=== PATIENT | female | born 1955 | race Caucasian/White ===

== ENCOUNTER 2022-09-21 08:48 | Outpatient (CLI) | payer OTHER | END 2022-09-21 08:50 | disposition home or self-care (01) | LOC: RX STUDY 08:48 | DX: R10.13 Epigastric pain (principal); K21.9 Gastro-esophageal reflux disease without esophagitis ==

== ENCOUNTER 2024-09-25 11:42 | Outpatient (CLI) | payer OTHER | END 2024-09-25 11:51 | disposition home or self-care (01) | LOC: RAD 11:42 | PROVIDERS: ATTEND Orthopaedic Surgery | DX: R05.9 Cough, unspecified (principal); M16.11 Unilateral primary osteoarthritis, right hip ==

== ENCOUNTER 2025-02-19 11:15 | Inpatient (IN) | payer OTHER ==
[2025-02-19 13:38] LABS: BASO % 1.0 % (0.1-1.2); EOS # 0.39 (0.04-0.54); EOS % 4.7 % (0.7-7.0); LYMPH # 0.93 (1.18-3.74); LYMPH % 11.2 % (19.3-53.1); MEAN PLATELET VOLUME 10.30 fl (9.4-12.4); MONO # 0.92 (0.24-0.82); MONO % 11.1 % (4.7-12.5); NEUT # 5.84 (1.56-6.13); NEUT % 70.7 % (34.0-71.1); RED CELL DISTRIBUTION WIDTH 16.7 % (11.6-14.4)
[2025-02-19] MEDS ORDERED: SYNTHROID100 MCG PO (13:38)
[2025-02-19] MEDS ORDERED: PACERONE200 MG PO (13:38)
[2025-02-19] MEDS ORDERED: NORVASC10 MG PO (13:38)
[2025-02-19] MEDS ORDERED: AVAPRO300 MG PO (13:39)
[2025-02-19] MEDS ORDERED: HYDRALAZINE HCL50 MG PO (13:39)
[2025-02-19 13:51] LABS: COVID-19 AG NEGATIVE (NEGATIVE)
[2025-02-19 14:20] LABS: CHOL HDL RATIO 5.6 (0-5.0); HDL 32.0 mg/dl (40-60); LDL 96.0 mg/dl (0-130); VLDL 49.0 (0-39)
[2025-02-19 15:07] LABS: RH POSITIVE
[2025-02-24 07:30] LABS: URINE APPEARANCE Cloudy; URINE BILIRRUBIN Negative (NEGATIVE); URINE BLOOD Negative; URINE COLOR Yellow; URINE KETONE Negative (NEGATIVE); URINE LEUKOCYTE Small; URINE NITRATE Negative; URINE UROBILINOGEN 0.2 E.U./dl
[2025-02-24 07:35] LABS: URINE BACTERIA 7355.9 uL (0.0-1933); URINE RBC 10.9 uL (0.0-20.8); URINE WBC 212.7 uL (0.0-23.2)
[2025-02-24 07:51] LABS: URINE CAST 0.58 uL (0.0-1.40); URINE EPITHELIAL CELLS > 201.7 uL (0.0-38.8); URINE GLUCOSE 100 MG/DL (NEGATIVE); URINE PROTEIN 100 (NEGATIVE)
[2025-02-25] MEDS ORDERED: TRANEXAMIC ACID 100MG/1ML (1000MG) AMPUL IV ONE (13:30)
[2025-02-25] MEDS ORDERED: ISOPROPYL ALCOHOL 30 ML OUNCE TOP ONE (13:30)
[2025-02-25] MEDS ORDERED: CEFAZOLIN SODIUM 1,000 MG VIAL IV ONE (13:30)
[2025-02-25] MEDS ORDERED: VANCOMYCIN HCL 1,000 MG VIAL IV ONE (13:30)
[2025-02-25] MEDS ORDERED: ONDANSETRON HCL 2 MG/ML VIAL IV PRN (17:30)
[2025-02-25] MEDS ORDERED: OxyCODONE HCL 5 MG TABLET (ROXICODONE) PO PRN (17:30)
[2025-02-25] MEDS ORDERED: SODIUM CHLORIDE 0.45 % 1,000 ML IV SCH (17:30)
[2025-02-25] MEDS ORDERED: MORPHINE SULFATE 4 MG/ML CARTRIDGE IV PRN (17:30)
[2025-02-25] MEDS ORDERED: ACETAMINOPHEN 500 MG GEL..CAP PO SCH (18:00)
[2025-02-25] MEDS ORDERED: MORPHINE SULFATE 4 MG/ML VIAL IV ONE ×2 (18:40→19:10)
[2025-02-25 23:00] VITALS: BP 121/67; O2SAT 97
[2025-02-26] MEDS ORDERED: CEFAZOLIN SODIUM 1,000 MG VIAL IV SCH (01:00)
[2025-02-26] MEDS ORDERED: GABAPENTIN 300 MG CAPSULE PO SCH (01:00)
[2025-02-26 07:12] LABS: BASO % 0.4 % (0.1-1.2); EOS # 0.06 (0.04-0.54); EOS % 0.6 % (0.7-7.0); LYMPH # 0.81 (1.18-3.74); LYMPH % 8.2 % (19.3-53.1); MEAN PLATELET VOLUME 10.70 fl (9.4-12.4); MONO # 0.85 (0.24-0.82); MONO % 8.6 % (4.7-12.5); NEUT # 7.98 (1.56-6.13); NEUT % 80.7 % (34.0-71.1); RED CELL DISTRIBUTION WIDTH 15.7 % (11.6-14.4)
[2025-02-26] MEDS ORDERED: SENNOSIDES 1 TAB TABLET PO SCH (09:00)
[2025-02-26] MEDS ORDERED: APIXABAN 2.5 MG TABLET PO SCH (09:00)
[2025-02-26] MEDS ORDERED: SOD FERRIC GLUC COMPLX/SUCROSE 62.5 MG/5 ML AMPUL IV NR (14:30)
[2025-02-26 16:00] VITALS: BP 141/65; O2SAT 96
[2025-02-26] MEDS ORDERED: Cyanocobalamin/Mecobalamin 1 TAB.SL SL SCH (17:00)
[2025-02-26 18:28] VITALS: BP 171/69; O2SAT 98
[2025-02-27 02:24] VITALS: BP 143/69; O2SAT 100
[2025-02-27 06:11] LABS: BASO % 0.5 % (0.1-1.2); EOS # 0.18 (0.04-0.54); EOS % 2.1 % (0.7-7.0); LYMPH # 0.79 (1.18-3.74); LYMPH % 9.2 % (19.3-53.1); MEAN PLATELET VOLUME 10.00 fl (9.4-12.4); MONO # 1.23 (0.24-0.82); NEUT # 6.26 (1.56-6.13); NEUT % 72.7 % (34.0-71.1); RED CELL DISTRIBUTION WIDTH 15.8 % (11.6-14.4)
[2025-02-27 06:25] LABS: MONO % 14.3 % (4.7-12.5)
[2025-02-27 07:05] LABS: AST/SGOT 19 U/L (15-37); BILIRUBIN TOTAL 0.51 mg/dL (0.3-1.2); GLOBULINA 3.4 G/DL (2.4-3.5); GLUCOSE FASTING 104 mg/dL (65-100); OSMOLALITY SERUM 283 MOSM/KG (275-295)
[2025-02-27 08:00] VITALS: BP 156/51; O2SAT 98
[2025-02-27 08:01] LABS: ALT/SGPT < 6 U/L (12-78); BUN CREA RATIO 6 (7.0-25.0); GFR 8.18
[2025-02-27 08:02] LABS: CREATININE SERUM 5.24 mg/dL (0.55-1.02)
[2025-02-27] MEDS ORDERED: IRON FUM,PS/FOLIC ACID/VITC/B3 1 CAP CAPSULE PO SCH (09:00)
[2025-02-27] MEDS ORDERED: SOD FERRIC GLUC COMPLX/SUCROSE 62.5 MG/5 ML AMPUL IV SCH (09:00)
[2025-02-27] MEDS ORDERED: PERCOCET 5-3251 EACH PO (15:41)
[2025-02-27] MEDS ORDERED: CEFADROXIL500 MG PO (15:41)
[2025-02-27] MEDS ORDERED: ELIQUIS2.5 MG PO (15:41)
[2025-02-27 16:00] VITALS: BP 166/58; O2SAT 95
== END 2025-02-27 21:49 | DRG 469 ==
LOC: SURH 02-25 07:00 → O/R 02-25 09:05 → SURG 02-25 09:05 → SURH 02-25 11:15 → SURG 02-25 15:29 → SURH 02-26 13:12
PROVIDERS: Internal Medicine; ADMIT Orthopaedic Surgery; ATTEND Orthopaedic Surgery
PROC: 0QU60JZ Supplement Right Upper Femur with Synthetic Substitute, Open Approach (ICD-10-PCS; 2025-02-25)
PROC: 0QU60JZ Supplement Right Upper Femur with Synthetic Substitute, Open Approach (ICD-10-PCS; 2025-02-25)
PROC: 0SR90JZ Replacement of Right Hip Joint with Synthetic Substitute, Open Approach (ICD-10-PCS; principal; 2025-02-25 07:00)
DX: M16.11 Unilateral primary osteoarthritis, right hip (principal); N18.6 End stage renal disease; D62 Acute posthemorrhagic anemia; Z68.41 Body mass index [BMI] 40.0-44.9, adult; M81.0 Age-related osteoporosis without current pathological fracture; Z96.641 Presence of right artificial hip joint; E66.9 Obesity, unspecified; E07.9 Disorder of thyroid, unspecified; Z99.2 Dependence on renal dialysis; M70.61 Trochanteric bursitis, right hip; M25.751 Osteophyte, right hip